=== PATIENT | male | born 1990 | race Caucasian/White ===

== ENCOUNTER 2020-01-12 02:43 | Emergency (ER) | payer BC ==
[2020-01-12] MEDS ORDERED: TYLENOL 325 MG PO ONE (03:08)
--- NOTE | 2020-01-12 03:18 | ERPHSYRPT ---
- History of Present Illness Time Seen by Provider: 01/12/20 03:10 Source: patient Exam Limitations: no limitations Patient Subjective Stated Complaint: pt states that he was putting the boat on the trailer, pt states that the trailer slipped and pinched his finger in betw een the trailer and the hitch Triage Nursing Assessment: pt ambulated into the er, pt is axo x3, pt has laceration to left thumb, multiple abrasion present, minimal bleeding present, state 6/10 pain to left thumb, laceration measured 3 cm x 0.25 cm, vitals wnl Physician History: Patient is a 29-year-old male presents to our ED with complaints of injury to his left thumb. Patient states his left thumb was pinched between his boat on a hitch. Injury occurred just prior to arrival. Pain described as an ache that is well localized. No radiation. Pain worse with movement and palpation. Pain improved with rest. Patient does have a superficial skin avulsion. No indication for suture repair. No other injuries reported. Patient otherwise healthy. Tetanus up-to-date. Patient voiced no other complaints at this time. Occurred: just prior to arrival Method of Injury: other Quality: constant Severity of Pain-Max: moderate Severity of Pain-Current: mild Extremities Pain Location: thumb: left Modifying Factors: Improves With: movement, rest Associated Symptoms: none Allergies/Adverse Reactions: No Known Drug Allergies Allergy (Unverified 01/12/20 03:10) Home Medications: Amitriptyline HCl 10 mg [Elavil 10 mg] 10 mg PO DAILY 01/12/20 [History] Omeprazole 20 mg PO DAILY 01/12/20 [History] Hx Tetanus, Diphtheria Vaccination/Date Given: Yes (2015) Hx Influenza Vaccination/Date Given: No Hx Pneumococcal Vaccination/Date Given: No Immunizations Up to Date: Yes Travel Risk - International Travel Have you traveled outside of the country in past 3 weeks: No - Coronavirus Screening Are you exhibiting any of the following symptoms?: No Close contact with a COVID-19 positive Pt in past 14-21 Days: No - Review of Systems Constitutional: No Symptoms, No Fever, No Chills Eyes: No Symptoms Ears, Nose, & Throat: No Symptoms Respiratory: No Symptoms, No Cough, No Dyspnea Cardiac: No Symptoms, No Chest Pain, No Edema, No Syncope Abdominal/Gastrointestinal: No Symptoms, No Abdominal Pain, No Nausea, No Vomiting, No Diarrhea Genitourinary Symptoms: No Symptoms, No Dysuria Musculoskeletal: No Symptoms, No Back Pain, No Neck Pain Skin: No Symptoms, No Rash Neurological: No Symptoms, No Dizziness, No Focal Weakness, No Sensory Changes Psychological: No Symptoms Endocrine: No Symptoms Hematologic/Lymphatic: No Symptoms Immunological/Allergic: No Symptoms All Other Systems: Reviewed and Negative - Past Medical History Pertinent Past Medical History: Yes Cardiac History: Hypertension GI Medical History: GERD - Past Surgical History Past Surgical History: Yes Gastrointestinal: Hernia Repair - Social History Smoking Status: Current every day smoker How long have you smoked: 10yrs Exposure to second hand smoke: No Drug Use: none Patient Lives Alone: No - Nursing Vital Signs Nursing Vital Signs: Initial Vital Signs Temperature 99.3 F 01/12/20 02:54 Pulse Rate 75 01/12/20 02:54 Respiratory Rate 16 01/12/20 02:54 Blood Pressure 136/89 01/12/20 02:54 O2 Sat by Pulse Oximetry 97 01/12/20 02:54 Pain Scale Pain Intensity 6 - Physical Exam General Appearance: no apparent distress, alert Eyes, Ears, Nose, Throat Exam: normal ENT inspection, moist mucous membranes Neck Exam: normal inspection, non-tender, full range of motion, No limited range of motion Cardiovascular/Respiratory Exam: regular rate/rhythm, no respiratory distress Abdominal Exam: non-tender, No guarding Back Exam: normal inspection, No vertebral tenderness Shoulder Exam: normal inspection, no evidence of injury Elbow/Forearm Exam: normal inspection, no evidence of injury Wrist Exam: normal inspection, non-tender, no evidence of injury Hand Exam: normal inspection, swelling (Left thumb swelling. There is a skin avulsion at the medial aspect of the left thumb. No subungual hematoma. Compartments are soft. Cap refill less than 2 seconds.) Neuro/Tendon Exam: normal sensation, normal motor functions Mental Status Exam: alert, oriented x 3, cooperative Skin Exam: normal color, warm, dry SpO2 Interpretation: normal SpO2: 97 O2 Delivery: Room Air - Course Nursing assessment & vital signs reviewed: Yes - Radiology Exams Other X-ray Interpretation: Interpreted by me (NO fractures or dislocations of left thumb) Ordered Tests: Active Orders 24 hr Category Date Time Status HAND (MINIMUM 3 VIEWS) Stat Exams 01/12/20 03:07 Taken Medication Summary Discontinued Medications Generic Name Dose Route Start Last Admin Trade Name Gissel PRN Reason Stop Dose Admin Acetaminophen 975 mg 01/12/20 03:08 Tylenol 325 Mg PO 01/12/20 03:09 STAT ONE - Progress Progress: improved Progress Note: 01/12/20 03:27 Patient reassessed. Pain improved. X-ray negative for acute fracture dislocation. No indication for suture repair of skin avulsion. No subungual hematoma. Repeat exam shows patient is neurovascular intact distally. Pain medication administered. Will discharge home. Diagnosis contusion. Skin avulsion. Counseled pt/family regarding: diagnosis, need for follow-up, rad results - Departure Departure Disposition: Home Clinical Impression: Thumb contusion, Skin avulsion Condition: Stable Critical Care Time: No Additional Instructions: Discharge/Care Plan JOSELITO RUANO was seen on 01/12/20 in the Emergency Room. The patient was counseled regarding Diagnosis,Lab results, Imaging studies, need for follow up and when to return to the Emergency Room. Prescriptions given: Discharge Note I have spoken with the patient and/or caregivers. I have explained the patient's condition, diagnosis and treatment plan based on the information available to me at this time. I have answered the patient's and/or caregiver's questions and addressed any concerns. The patient and/or caregivers have as good understanding of the patient's diagnosis, condition and treatment plan as can be expected at this point. The vital signs have been stable. The patient's condition is stable and appropriate for discharge from the emergency department. The patient will pursue further outpatient evaluation with the primary care physician or other designated or consulting physician as outlined in the discharge instructions. The patient and/or caregivers are agreeable to this plan of care and follow-up instructions have been explained in detail. The patient and/or caregivers have received these instruction. The patient/and or caregivers are aware that any significant change in condition or worsening of symptoms should prompt an immediate return to this or the closest emergency department or call 911.
[2020-01-12] MEDS ORDERED: TYLENOL 325 MG ONE (03:28)
[2020-01-12 03:42] VITALS: BP 146/93; PULSE 76; O2SAT 96
--- NOTE | 2020-01-12 08:58 | XRAY ---
Indication: Crush injury. Comparison: None 3 view left hand demonstrates tiny distal radius bone island. No other bony, articular, or soft tissue abnormalities.
== END 2020-01-12 03:38 | disposition home or self-care (01) ==
LOC: ED 02:43
DX: S60.012A Contusion of left thumb without damage to nail, initial encounter (principal); W23.0XXA Caught, crushed, jammed, or pinched between moving objects, initial encounter; Y93.89 Activity, other specified; Y92.89 Other specified places as the place of occurrence of the external cause; S61.012A Laceration without foreign body of left thumb without damage to nail, initial encounter; I10 Essential (primary) hypertension; K21.9 Gastro-esophageal reflux disease without esophagitis; Z72.0 Tobacco use
CPT/HCPCS: 73130; 99283; A9270-GY